=== PATIENT | female | born 1945 | race Caucasian/White ===

== ENCOUNTER 2017-11-27 16:24 | Emergency (ER) | payer MEDICARE, OTHER ==
[2017-11-27 17:32] VITALS: BP 154/91
--- NOTE | 2017-11-27 18:10 | UC ---
Dom Edwards Tenzin, scribed for Ramona Webb MD on 11/27/17 at 1809 . Bite Injury/Animal HPI - HPI Summary HPI Summary: Pt is a 72 years old female presenting to the complaining of a insect bite on the left back yesterday. She is also complaining of feeling itchy on the bite spot. She does not note any aggravating and alleviating factor. She reported that she was outside a lot. She is on Capaxone for MS. tdap utd. Pt concerned may have been a tick but none seem. no fever, chills. No n/v. no mylagia. She is retired. She is a non-smoker and occasionally drinker. Pt also has a bump inside her right palm from just working outside a lot. Pt's medications reviewed this visit - History of Current Complaint Chief Complaint: SESARkin Stated Complaint: BUG BITE Time Seen by Provider: 11/27/17 17:57 Hx Obtained From: Patient ?: No Severity Currently: None Pain Intensity: 0 Pain Scale Used: 0-10 Numeric Onset/Duration: Sudden Onset Type of Bite: Animal Aggravating Factor(s): Nothing Alleviating Factor(s): Nothing Associated Signs And Symptoms: Positive: Negative - Allergies/Home Medications Allergies/Adverse Reactions: Allergies Allergy/AdvReac Type Severity Reaction Status Date / Time CATS Allergy Severe ITCHY Uncoded 11/27/17 17:21 Home Medications: Home Medications Ibandronate Sodium [Boniva] 150 mg PO MONTHLY 11/27/17 [History Confirmed ] PMH/Surg Hx/FS Hx/Imm Hx - Additional Past Medical History Additional PMH: POSITIVE: HTN NEGATIVE: CT, CVA. Previously Healthy: Yes - Surgical History Surgical History: Yes Surgery Procedure, Year, and Place: BILATERAL LUMP REMOVAL FROM BREASTS, OVARIAN RESECTION DUE TO ENDOMETRIOSIS - Family History Known Family History: Positive: Other - Pt denies any relevant family history. - Social History Occupation: Retired Lives: With Family Alcohol Use: Rare Substance Use Type: None Smoking Status (MU): Never Smoked Tobacco Review of Systems Constitutional: Negative Skin: Other - skin infection from an insect bite on the left back. Eyes: Negative ENT: Negative Respiratory: Negative Cardiovascular: Negative Gastrointestinal: Negative Genitourinary: Negative Motor: Negative Neurovascular: Negative Musculoskeletal: Negative Neurological: Negative Psychological: Negative All Other Systems Reviewed And Are Negative: Yes Physical Exam - Summary Physical Exam Summary: Vital Signs Reviewed: Yes A+Ox3, no distress Eyes: Conjunctiva Clear ENT: Hearing grossly normal neck: supple Respiratory: Positive: No respiratory distress, No accessory muscle use CTA Throughout no w/r Cardiovascular: skin color reflect adequate perfusion CTA throughout no w/r Musculoskeletal Exam: HILL x 4 without difficulty Neurological: Positive: Alert, ambulatory without difficulty Psychological: Positive: Normal Response To Family Skin: Positive: left back under scapula at braline pt with 2 cm are of erythema , warmth and central defect - c/w bite wound. no drainage. mild discomfort no fluctuance Triage Information Reviewed: Yes Vital Signs: Initial Vital Signs Temp 99.4 F 11/27/17 17:27 Pulse 76 11/27/17 17:27 Resp 16 11/27/17 17:27 BP 154/91 11/27/17 17:27 Pulse Ox 98 11/27/17 17:27 Bite Injury Course/Dx - Course Course Of Treatment: Pt with area of erythema left upper back c/w bite wound. area with erythema, warmth. pt is immunocompromised on copaxone will Rx abx. wound care. s/s infection. return precautions. bandage to prevent rubbing along braline. pt with mildly elevated BP - recommend PCP f/u - Differential Dx/Diagnosis Provider Diagnoses: left upper back wound, early cellulitis Discharge - Sign-Out/Discharge Documenting (check all that apply): Discharge/Admit/Transfer - Discharge Plan Condition: Stable Disposition: HOME Prescriptions: DOXYcycline CAP(*) [DOXYcycline 100MG CAP(*)] 100 mg PO BID #14 cap Patient Education Materials: Cellulitis (ED), Insect Bite or Sting (ED) Referrals: No Primary Care Phys,NOPCP [Primary Care Provider] - Additional Instructions: - take antibiotics as prescribed until gone - cover your back wound with a thick layer of antibiotic and bandage - Monitor for signs of increased reddness. REd streaking, odor, drainage, pain , fever - if this occurs it is recommended you go to the emergency department for further evaluation and treatment - For your hand - after discussion - you will soak in warm epsom salt soaks for 15 minutes, 2-3 times a day. Okay to gently mild your wound when warm and soft - If you have increased pain ,fever, drainage or any other concerns it is recommended you return to urgent care or go to the emergency department - Billing Disposition and Condition Condition: STABLE Disposition: Home The documentation as recorded by the Dom dumont Tenzin accurately reflects the service I personally performed and the decisions made by me, Ramona Webb MD.
== END 2017-11-27 18:28 | disposition home or self-care (01) ==
LOC: UCEAST 16:24
DX: S20.462A Insect bite (nonvenomous) of left back wall of thorax, initial encounter (principal); L03.312 Cellulitis of back [any part except buttock and flank]; W57.XXXA Bitten or stung by nonvenomous insect and other nonvenomous arthropods, initial encounter; Y93.9 Activity, unspecified; Y92.9 Unspecified place or not applicable; I10 Essential (primary) hypertension
CPT/HCPCS: 99212; G0463

== ENCOUNTER 2018-01-03 15:12 | Emergency (ER) | payer OTHER ==
[2018-01-03 15:31] VITALS: BP 133/87
--- NOTE | 2018-01-03 15:46 | UC ---
Skin Complaint HPI - HPI Summary HPI Summary: This is julia Warren documenting for Robin Soriano MD. This patient is a 72 year old F presenting to [facility] with a chief complaint of swelling around abrasion on R zheng that began this morning. The patient rates the pain 6/10 in severity. Symptoms aggravated by nothing. Symptoms alleviated by nothing. Patient denies fever and red streaks from abrasion. Pt reports that she fell on [place] 10 days ago, and had an abrasion to the R zheng. She reports that the abrasion has not improved. Allergies reviewed. Medications reviewed. - History of Current Complaint Chief Complaint: UCSkin Time Seen by Provider: 01/03/18 15:37 Stated Complaint: SOFT TISSUE Hx Obtained From: Patient Hx Last Menstrual Period: na ?: No Onset/Duration: Sudden Onset, Lasting Hours, Still Present Skin Exposure Onset/Duration: Weeks Ago Timing: Constant Onset Severity: Moderate Current Severity: Moderate Pain Intensity: 6 Pain Scale Used: 0-10 Numeric Location: Other - R zheng Character: Swelling Aggravating Factor(s): Nothing Alleviating Factor(s): Nothing Associated Signs & Symptoms: Negative: Fever, Red Streaks - Allergy/Home Medications Allergies/Adverse Reactions: Allergies Allergy/AdvReac Type Severity Reaction Status Date / Time CATS Allergy Severe ITCHY Uncoded 01/03/18 15:31 Review of Systems Constitutional: Other - Negative fever Skin: Other - Positive abrasion and swelling on R zheng All Other Systems Reviewed And Are Negative: Yes PMH/Surg Hx/FS Hx/Imm Hx Previously Healthy: No Endocrine History: Other Other Endocrine History: Negative diabetes Cardiovascular History: Hypertension - Surgical History Surgical History: Yes Surgery Procedure, Year, and Place: BILATERAL LUMP REMOVAL FROM BREASTS, OVARIAN RESECTION DUE TO ENDOMETRIOSIS - Family History Known Family History: Negative: Cardiac Disease, Diabetes - Social History Occupation: Retired Lives: With Family Alcohol Use: Rare Substance Use Type: None Smoking Status (MU): Never Smoked Tobacco Physical Exam - Summary Physical Exam Summary: General: well-appearing, no pain distress Skin: warm, color reflects adequate perfusion, dry, R zheng 1 cm moist open abrasion, with no drainage, surrounded by 2 cm diameter erythema, no streaking Head: normal Eyes: EOMI, SAPNA ENT: normal Neck: supple, nontender Respiratory: CTA, breath sounds present Cardiovascular: RRR Abdomen: soft, nontender Bowel: present Musculoskeletal: normal, strength/ROM intact Neurological: sensory/motor intact, A&O x3 Psychological: affect/mood appropriate Triage Information Reviewed: Yes Vital Signs: Initial Vital Signs Temp 98.6 F 01/03/18 15:27 Pulse 85 01/03/18 15:27 Resp 20 01/03/18 15:27 BP 133/87 01/03/18 15:27 Pulse Ox 99 01/03/18 15:27 Vital Signs Reviewed: Yes Course/Dx - Course Course Of Treatment: RX KEFLEX AND MUPIROCIN - Diagnoses Provider Diagnoses: CELLULITIS RIGHT LEG Discharge - Sign-Out/Discharge Documenting (check all that apply): Patient Departure - Discharge Plan Condition: Stable Disposition: HOME Prescriptions: Cephalexin CAP* [Keflex CAP*] 500 mg PO TID #30 cap Mupirocin 1 applic TOPICAL TID #22 gm Patient Education Materials: Cellulitis (ED) Referrals: [facility] [Outside] Additional Instructions: FOLLOW UP WITH YOUR DOCTOR IF NOT COMPLETELY IMPROVED. GET RECHECKED FOR ANY WORSENING OF YOUR CONDITION; SPREAD OF INFECTION, FEVER, YOU FEEL ILL OR QUESTIONS OR CONCERNS. - Billing Disposition and Condition Condition: STABLE Disposition: Home
== END 2018-01-03 15:52 | disposition home or self-care (01) ==
LOC: UCEAST 15:12
DX: L03.115 Cellulitis of right lower limb (principal); I10 Essential (primary) hypertension; Z91.048 Other nonmedicinal substance allergy status
CPT/HCPCS: 99212; G0463

== ENCOUNTER 2018-04-01 16:45 | Emergency (ER) | payer OTHER ==
--- NOTE | 2018-04-01 17:24 | UC ---
Bite Injury/Animal HPI - HPI Summary HPI Summary: 73 yo patient who states she was bitten by a friend's dog on her in left hand an hour and half ago today. Dog is a young terrier and UTD on rabies/shots. Pt tetanus in 2016. She states bite was provoked as she sat on the dog to restrain him as he was excited to see a group of runners on the street and the leash mechanism failed to retract. Denies numbness or weakness of hand, denies pain. - History of Current Complaint Stated Complaint: DOG BITE ON HAND Hx Obtained From: Patient Hx Last Menstrual Period: na ?: No Severity Currently: Moderate Severity Initially: Moderate Pain Intensity: 6 Onset/Duration: Sudden Onset Type of Bite: Animal Character: Puncture, Abrasion/Laceration Aggravating Factor(s): Exertion Alleviating Factor(s): Nothing Associated Signs And Symptoms: Positive: Negative Animal Available for Observation: Yes Animal Control Notified: No - Risk Factors Infection/Sepsis Risk Factors: Immunocompromised Patient - Allergies/Home Medications Allergies/Adverse Reactions: Allergies Allergy/AdvReac Type Severity Reaction Status Date / Time CATS Allergy Severe ITCHY Uncoded 04/01/18 17:08 Home Medications: Home Medications DULoxetine DR CAP* [Cymbalta CAP*] 20 mg PO DAILY WITH MEAL 04/01/18 [History Confirmed 04/01/18] PMH/Surg Hx/FS Hx/Imm Hx - Additional Past Medical History Additional PMH: Multiple sclerosis Cardiovascular History: Hypertension Psychological History: Anxiety, Depression - Surgical History Surgical History: Yes Surgery Procedure, Year, and Place: BILATERAL LUMP REMOVAL FROM BREASTS, OVARIAN RESECTION DUE TO ENDOMETRIOSIS - Family History Known Family History: Positive: Hypertension Negative: Cardiac Disease, Diabetes - Social History Alcohol Use: Occasionally Substance Use Type: None Smoking Status (MU): Never Smoked Tobacco Review of Systems Constitutional: Negative Skin: Bruising, Other - wound All Other Systems Reviewed And Are Negative: Yes Physical Exam - Summary Physical Exam Summary: linear abrasion on radial aspect of left wrist involving skin and SC tissue approx 5.5cm in length. Smaller superficial abrasions on thenar prominence, wrist and a puncture wound on hypothenar area. Minimal bleeding after irrigation , no visible foreign body Triage Information Reviewed: Yes Vital Signs: Initial Vital Signs Temp 99.3 F 04/01/18 17:04 Pulse 86 04/01/18 17:04 Resp 18 04/01/18 17:04 BP 167/102 04/01/18 17:04 Pulse Ox 99 04/01/18 17:04 Vital Signs Reviewed: Yes ENT: Positive: Hearing grossly normal Neck: Positive: Supple, Nontender Respiratory: Positive: Chest non-tender, Lungs clear, Normal breath sounds Cardiovascular: Positive: RRR, No Murmur, Pulses Normal, Brisk Capillary Refill Abdomen Description: Positive: Nontender, No Organomegaly, Soft Bowel Sounds: Positive: Present Musculoskeletal: Positive: Strength Intact, ROM Intact, No Edema Bite Injury Course/Dx - Course Course Of Treatment: patient sustained a dog bite on left wrist 90 min prior to arrival. Irrigation with hibisclens on wound was done. Loose approximation of wound with steristrips performed, started augmentin first dose at to complete one week of treatment. Patient's PCP is in [place], to f/u at in 4-5 days and with PCP when arrival, monitor BP. Tetanus vaccine is UTD. - Differential Dx/Diagnosis Provider Diagnoses: Dog bite. HTN Discharge - Sign-Out/Discharge Documenting (check all that apply): Patient Departure All imaging exams completed and their final reports reviewed: No Studies - Discharge Plan Condition: Stable Disposition: HOME Patient Education Materials: Animal Bite (ED), Amoxicillin/Clavulanate Potassium (By mouth) Referrals: No Primary Care Phys,NOPCP [Primary Care Provider] - [facility] [place] [facility] [Outside] Additional Instructions: follow up care at in 4 days to recheck wound Follow up with your primary care in [place] when you return there and monitor your blood pressure Continue augmentin for the full course of 7 days - Billing Disposition and Condition Condition: STABLE Disposition: Home
[2018-04-01] MEDS ORDERED: Amoxicillin/Clavulanate TAB* 875 MG PO ONE (17:35)
[2018-04-01 18:19] VITALS: BP 180/101
== END 2018-04-01 18:33 | disposition home or self-care (01) ==
LOC: UCEAST 16:45
DX: S61.452A Open bite of left hand, initial encounter (principal); J30.81 Allergic rhinitis due to animal (cat) (dog) hair and dander; G35 Multiple sclerosis; I10 Essential (primary) hypertension; F41.9 Anxiety disorder, unspecified; F32.9 Major depressive disorder, single episode, unspecified; W54.0XXA Bitten by dog, initial encounter; Y93.K1 Activity, walking an animal; Y92.9 Unspecified place or not applicable; Z79.2 Long term (current) use of antibiotics
CPT/HCPCS: 99212; A9270-GY; G0463